=== PATIENT | male | born 1945 | race Caucasian/White ===

== ENCOUNTER 2018-07-08 11:37 | Emergency (ER) | payer OTHER, BC ==
--- NOTE | 2018-07-08 12:53 | ER ---
Nurse's Notes [facility] Name: Amilcar Moreno Age: 73 yrs Sex: Male : 1945 Arrival Date: 07/08/2018 Time: 11:42 Bed 16 Private MD: Segundo Reeves B Diagnosis: Sialoadenitis, unspecified Presentation: 07/08 11:49 Presenting complaint: Patient states: swollen gland on neck that he noticed just today, iw tender to touch, denies feeling bad, no fever, no cough no sore throat. Transition of care: patient was not received from another setting of care. Onset of symptoms was July 08, 2018. Risk Assessment: Do you want to hurt yourself or someone else? Patient reports no desire to harm self or others. Initial Sepsis Screen: Does the patient meet any 2 criteria? No. Patient's initial sepsis screen is negative. Does the patient have a suspected source of infection? No. Patient's initial sepsis screen is negative. Care prior to arrival: None. 11:49 Method Of Arrival: Ambulatory iw 11:49 Acuity: JOSE 4 iw Triage Assessment: 12:15 General: Appears in no apparent distress. uncomfortable, Behavior is calm, cooperative, hj appropriate for age. Pain: Complains of pain in neck. Historical: - Allergies: 11:52 No Known Allergies; iw - Home Meds: 11:52 atorvastatin 20 mg Oral tab 1 tab once daily [Active]; Bystolic 20 mg Oral tab 1 tab iw once daily [Active]; spironolactone 25 mg Oral tab 1 tab once daily [Active]; Tribenzor 40-10-12.5 mg Oral tab 1 tab once daily [Active]; Janumet 50-1,000 mg oral tab 1 tab 2 times per day [Active]; - PMHx: 11:52 COPD; Diabetes - NIDDM; Hypertension; High Cholesterol; iw 11:54 prostate cancer; iw - PSHx: 11:52 Cholecystectomy; Vasectomy; iw - Immunization history:: Adult Immunizations up to date. - Social history:: Smoking status: Patient/guardian denies using tobacco. - Ebola Screening: : Patient negative for fever greater than or equal to 101.5 degrees Fahrenheit, and additional compatible Ebola Virus Disease symptoms Patient denies exposure to infectious person Patient denies travel to an Ebola-affected area in the 21 days before illness onset No symptoms or risks identified at this time. - Family history:: not pertinent. Screenin:15 Abuse screen: Denies threats or abuse. Denies injuries from another. Nutritional hj screening: No deficits noted. Tuberculosis screening: No symptoms or risk factors identified. Fall Risk None identified. Vital Signs: 11:52 BP 157 / 80; Pulse 78; Resp 18 S; Temp 98.4; Pulse Ox 96% on R/A; Weight 112.04 kg; iw Height 5 ft. 10 in. (177.80 cm); Pain 0/10; 13:02 BP 158 / 78; Pulse 75; Resp 18; Pulse Ox 97% on R/A; hj 11:52 Body Mass Index 35.44 (112.04 kg, 177.80 cm) ED Course: 11:42 Patient arrived in ED. sb2 11:42 Segundo Reeves MD is Private Physician. sb2 11:50 Triage completed. iw 11:52 Arm band placed on. iw 12:11 Nayan Choi, RN is Primary Nurse. hj 12:14 Lowell Ortiz MD is Attending Physician. [facility] 12:16 Patient has correct armband on for positive identification. Bed in low position. Call hj light in reach. Side rails up X 1. 12:50 Segundo Reeves MD is Referral Physician. [facility] 13:00 No provider procedures requiring assistance completed. Patient did not have IV access hj during this emergency room visit. Administered Medications: 12:49 Drug: Augmentin 875 mg Route: PO; hj 12:52 Follow up: Response: No adverse reaction hj Outcome: 12:53 Discharge ordered by . bernabe 13:01 Discharged to home ambulatory. hj 13:01 Condition: stable 13:01 Discharge instructions given to patient, Instructed on discharge instructions, follow up and referral plans. medication usage, Demonstrated understanding of instructions, follow-up care, medications, Prescriptions given X 1. 13:03 Patient left the ED. hj Signatures: Lowell Ortiz MD MD cha Williams, Irene, RN RN Nayan Choi, RN RN Sharifa Bang sb2
--- NOTE | 2018-07-08 12:53 | EDPHYS ---
Physician Documentation [facility] Name: Amilcar Moreno Age: 73 yrs Sex: Male : 1945 Arrival Date: 07/08/2018 Time: 11:42 Bed 16 Private MD: Segundo Reeves B ED Physician Lowell Ortiz HPI: 07/08 12:47 This 73 yrs old Male presents to ER via Ambulatory with complaints of Swollen bernabe Glands. 12:47 The patient presents with pain, swelling. The problem is located in the right jaw. bernabe Onset: The symptoms/episode began/occurred this morning, today. Duration: The symptoms are continuous, and are unchanged since they started. Modifying factors: The symptoms are alleviated by nothing, the symptoms are aggravated by chewing, talking. The patient or guardian complains of pain, swelling, tenderness. The symptoms are located on the right jaw. Historical: - Allergies: 11:52 No Known Allergies; iw - Home Meds: 11:52 atorvastatin 20 mg Oral tab 1 tab once daily [Active]; Bystolic 20 mg Oral tab 1 tab iw once daily [Active]; spironolactone 25 mg Oral tab 1 tab once daily [Active]; Tribenzor 40-10-12.5 mg Oral tab 1 tab once daily [Active]; Janumet 50-1,000 mg oral tab 1 tab 2 times per day [Active]; - PMHx: 11:52 COPD; Diabetes - NIDDM; Hypertension; High Cholesterol; iw 11:54 prostate cancer; iw - PSHx: 11:52 Cholecystectomy; Vasectomy; iw - Immunization history:: Adult Immunizations up to date. - Social history:: Smoking status: Patient/guardian denies using tobacco. - Ebola Screening: : Patient negative for fever greater than or equal to 101.5 degrees Fahrenheit, and additional compatible Ebola Virus Disease symptoms Patient denies exposure to infectious person Patient denies travel to an Ebola-affected area in the 21 days before illness onset No symptoms or risks identified at this time. - Family history:: not pertinent. ROS: 12:47 Constitutional: Negative for fever, chills, and weight loss, Eyes: Negative for injury, bernabe pain, redness, and discharge, Neck: Negative for injury, pain, and swelling, Cardiovascular: Negative for chest pain, palpitations, and edema, Respiratory: Negative for shortness of breath, cough, wheezing, and pleuritic chest pain, Abdomen/GI: Negative for abdominal pain, nausea, vomiting, diarrhea, and constipation, Back: Negative for injury and pain, : Negative for injury, bleeding, discharge, and swelling, MS/Extremity: Negative for injury and deformity, Skin: Negative for injury, rash, and discoloration, Neuro: Negative for headache, weakness, numbness, tingling, and seizure, Psych: Negative for depression, anxiety, suicide ideation, homicidal ideation, and hallucinations, Allergy/Immunology: Negative for hives, rash, and allergies, Endocrine: Negative for neck swelling, polydipsia, polyuria, polyphagia, and marked weight changes, Hematologic/Lymphatic: Negative for swollen nodes, abnormal bleeding, and unusual bruising. 12:47 ENT: Positive for sore throat, right submandibular swelling, no trismus. Exam: 12:47 Constitutional: This is a well developed, well nourished patient who is awake, alert, bernabe and in no acute distress. Eyes: Pupils equal round and reactive to light, extra-ocular motions intact. Lids and lashes normal. Conjunctiva and sclera are non-icteric and not injected. Cornea within normal limits. Periorbital areas with no swelling, redness, or edema. Neck: Trachea midline, no thyromegaly or masses palpated, and no cervical lymphadenopathy. Supple, full range of motion without nuchal rigidity, or vertebral point tenderness. No Meningismus. Chest/axilla: Normal chest wall appearance and motion. Nontender with no deformity. No lesions are appreciated. Cardiovascular: Regular rate and rhythm with a normal S1 and S2. No gallops, murmurs, or rubs. Normal PMI, no JVD. No pulse deficits. Respiratory: Lungs have equal breath sounds bilaterally, clear to auscultation and percussion. No rales, rhonchi or wheezes noted. No increased work of breathing, no retractions or nasal flaring. Abdomen/GI: Soft, non-tender, with normal bowel sounds. No distension or tympany. No guarding or rebound. No evidence of tenderness throughout. Back: No spinal tenderness. No costovertebral tenderness. Full range of motion. Male : Normal genitalia with no discharge or lesions. Skin: Warm, dry with normal turgor. Normal color with no rashes, no lesions, and no evidence of cellulitis. 12:47 Head/face: Noted is swelling, tenderness, that is mild, of the right jaw and right mandible. Vital Signs: 11:52 BP 157 / 80; Pulse 78; Resp 18 S; Temp 98.4; Pulse Ox 96% on R/A; Weight 112.04 kg; iw Height 5 ft. 10 in. (177.80 cm); Pain 0/10; 13:02 BP 158 / 78; Pulse 75; Resp 18; Pulse Ox 97% on R/A; hj 11:52 Body Mass Index 35.44 (112.04 kg, 177.80 cm) MDM: 12:14 Patient medically screened. [facility] 12:50 Data reviewed: vital signs, nurses notes. [facility] Administered Medications: 12:49 Drug: Augmentin 875 mg Route: PO; 12:52 Follow up: Response: No adverse reaction Disposition: 07/08/18 12:53 Discharged to Home. Impression: Sialoadenitis, unspecified. - Condition is Stable. - Discharge Instructions: Salivary Gland Infection. - Prescriptions for Augmentin 875- 125 mg Oral Tablet - take 1 tablet by ORAL route every 12 hours for 10 days; 20 tablet. - Medication Reconciliation Form, Thank You Letter, Antibiotic Education, Prescription Opioid Use form. - Follow up: Segundo Reeves MD; When: 2 - 3 days; Reason: Recheck today's complaints, Continuance of care, Re-evaluation by your physician. - Problem is new. - Symptoms have improved. Signatures: Lowell Ortiz MD MD cha Williams, Irene RN RN Nayan Choi RN RN Corrections: (The following items were deleted from the chart) 13:03 12:53 07/08/2018 12:53 Discharged to Home. Impression: Sialoadenitis, unspecified. Condition is Stable. Forms are Medication Reconciliation Form, Thank You Letter, Antibiotic Education, Prescription Opioid Use. Follow up: Segundo Reeves; When: 2 - 3 days; Reason: Recheck today's complaints, Continuance of care, Re-evaluation by your physician. Problem is new. Symptoms have improved. [facility]
[2018-07-08] MEDS ORDERED: AMOX/K CLAV 875 MG TAB ONE (13:01)
[2018-07-08 13:12] VITALS: TEMP 98.4
[2018-07-08 13:14] VITALS: BP 158/78; O2SAT 97
== END 2018-07-08 13:03 | disposition home or self-care (01) ==
LOC: ER 11:37
DX: K11.20 Sialoadenitis, unspecified (principal); J44.9 Chronic obstructive pulmonary disease, unspecified; E11.9 Type 2 diabetes mellitus without complications; E78.00 Pure hypercholesterolemia, unspecified; I10 Essential (primary) hypertension; Z79.84 Long term (current) use of oral hypoglycemic drugs; Z79.899 Other long term (current) drug therapy; Z85.46 Personal history of malignant neoplasm of prostate
CPT/HCPCS: 99283

== ENCOUNTER 2020-01-13 07:39 | Day surgery (SDC) | payer OTHER, BC ==
[2020-01-10 09:35] LABS: Absolute Lymphocytes (CBC) 1.2 K/uL (0.7-4.9); Basophils % 0.6 % (0-1.3); Hematocrit 38.9 % (39.6-49.0); Lymphocytes % 19.6 % (15.3-44.8); MPV 8.5 fL (7.6-11.3); RBC Red Blood Cell Count 4.35 M/uL (4.33-5.43)
--- NOTE | 2020-01-10 09:40 | RAD REPORT ---
EXAM DESCRIPTION: RAD - Chest Pa And Lat (2 Views) - 01/10/2020 9:25 am CLINICAL HISTORY: Preop Chest pain. COMPARISON: Chest Pa And Lat (2 Views) dated 09/21/2016; CHEST PA AND LAT 2 VIEW dated 09/10/2015; [facility] SINGLE VIEW dated 12/11/2014; CHEST SINGLE VIEW dated 12/10/2014 TECHNIQUE: PA and lateral views of the chest were obtained. FINDINGS: The lungs are hyperexpanded compatible with COPD. The heart is upper limit of normal in si ze. No fracture or aggressive bony process. IMPRESSION: COPD without acute process identified.
[2020-01-10 09:42] LABS: Potassium 3.4 mmol/L (3.5-5.1)
[2020-01-13] MEDS ORDERED: NA CHLORIDE 0.9% 1,000 ML ONE (08:04)
[2020-01-13] MEDS ORDERED: CEFAZOLIN/SWI 1gm 1 GM/10 ML SYR ONE (08:05)
[2020-01-13] MEDS ORDERED: ALBUTEROL INHALER 60 PUFF/8 GM IH ONE (08:08)
[2020-01-13] MEDS ORDERED: ALBUTEROL 2.5 MG/3 ML NEB SOL ONE (08:14)
[2020-01-13] MEDS ORDERED: FENTANYL CITR 100 MCG/2 ML ONE (08:26)
[2020-01-13] MEDS ORDERED: LIDOCAINE 1% MPF 5 ML VIAL ONE (08:26)
[2020-01-13] MEDS ORDERED: propofoL 200 MG/20 ML VIAL IV ONE (08:26)
[2020-01-13] MEDS ORDERED: KETOROLAC 30 MG/ML INJ ONE (08:51)
[2020-01-13] MEDS ORDERED: dexAMETHasone 10 MG/ML VIAL ONE (08:51)
--- OUTSIDE RECORDS SUMMARY | 2020-01-13 09:04 | XMS REPORT | Continuity of Care Document ---
:1945 Author Organization [facility] t Address [address] [place] [address] Dr. Sales [address] [place] [id number] Care Team Providers Name Role Phone Unavailable Unavailable Unavailable Problems This patient has no known problems. Allergies, Adverse Reactions, Alerts This patient has no known allergies or adverse reactions. Medications This patient has no known medications. Procedures This patient has no known procedures. Results This patient has no known results.
[2020-01-13] MEDS ORDERED: ONDANSETRON 4 MG/2 ML VIAL ONE (09:09)
[2020-01-13] MEDS ORDERED: EPHEDRINE SULF 50 MG/ML VIAL ONE (09:09)
[2020-01-13] MEDS ORDERED: NS 0.9% VIAL 10 ML ONE (09:09)
[2020-01-13 09:27] VITALS: TEMP 97.3
[2020-01-13 09:33] VITALS: O2SAT 95
[2020-01-13] MEDS ORDERED: SUCCINYLCHOLINE 20 MG/ML (10 ML) IV ONE (09:35)
[2020-01-13] MEDS ORDERED: HYDROCODONE/APAP 7.5/325 MG TAB ONE (10:06)
--- NOTE | 2020-01-13 10:37 | OP ---
Date of Procedure: 01/13/2020 Surgeon: Alvin Gabriel MD Financial Advisor Trainee: ALISON Sky. Preoperative Diagnosis: Right breast mass. Postoperative Diagnosis: Right breast mass. Procedure Performed: Excision of right breast mass. Estimated Blood Loss: Minimal. Specimen: Right breast mass. Findings: Right breast mass consistent with hamartoma. Anesthesia: General. Complications: None. Disposition: Patient tolerated the procedure in stable condition, taken to Recovery in good general condition. Procedure In Detail: The patient was brought to the OR, placed in supine position. General anesthes ia begun. Patient was prepped and draped in the usual sterile fashion. Marcaine 0.5% infiltrated fo r postop pain control. A 15 blade was used to make a 4 cm incision above the nipple-areolar complex from approximately the 10 o'clock to 2 o'clock. Subcutaneous tissue divided. A mass with the capsul e surrounding it identified, the capsule and the mass both excised, sent to Pathology. Bleeding cont rolled with cautery. Then 3-0 chromic used to approximate the subcutaneous tissue and close the skin . Sterile dressing was applied. Patient was awakened and taken to Recovery in good general conditio n. The mass was approximately 4 x 6 cm in diameter. The patient tolerated the procedure in stable c ondition, taken to Recovery in good general condition. Discharge Note: Patient will go to Day Surgery and home when stable. Disposition: Home. Condition: Stable. Discharge Instructions: Resume home medications and diet. Activity as tolerated. No heavy lifting. Keep dressing clean and dry, sponge bathe only. Follow up in my office in a week. Call for appoin tment. Tylenol No. 3 one tablet p.o. q.4 p.r.n. pain. /MODL Voice ID: [id number] Report ID: [id number]
[2020-01-13 11:20] VITALS: BP 157/68
--- NOTE | 2020-01-14 12:12 | EKG ---
Test Date: 2020-01-10 Test Time: 09:41:03 Engineering Production Liaison: DELIA MEASUREMENT RESULTS: Intervals: Rate: 62 SC: 194 QRSD: 106 QT: 434 QTc: 440 [place]: P: 14 SC: 194 QRS: 52 T: 48 INTERPRETIVE STATEMENTS: Normal sinus rhythm Normal ECG Compared to ECG 12/11/2014 07:01:33 Sinus bradycardia no longer present First degree AV block no longer present Electronically Signed On 01-14-20 12:09:41 CDT by Jon Varma
== END 2020-01-13 10:30 | disposition home or self-care (01) ==
LOC: OR 07:39
PROVIDERS: ATTEND Surgery
PROC: 0HBT0ZZ Excision of Right Breast, Open Approach (ICD-10-PCS; principal; 2020-01-13 08:30)
DX: N63.10 Unspecified lump in the right breast, unspecified quadrant (principal); E11.9 Type 2 diabetes mellitus without complications; I10 Essential (primary) hypertension; Z11.59 Encounter for screening for other viral diseases
CPT/HCPCS: 93005; 85025; 80048; 36415; 82947 ×2; 88305; 71046; 19120; U0002; J2704; J3010; J1100; J0690; J7030; J2405; J0330

== ENCOUNTER 2020-03-20 22:35 | Emergency (ER) | payer OTHER, BC ==
--- OUTSIDE RECORDS SUMMARY | 2020-03-20 22:40 | XMS REPORT | Continuity of Care Document ---
:1945 Author Organization [facility] t Address [address] [place] [address] Dr. Sales [address] [place] [id number] Care Team Providers Name Role Phone Unavailable Unavailable Unavailable Problems This patient has no known problems. Allergies, Adverse Reactions, Alerts This patient has no known allergies or adverse reactions. Medications This patient has no known medications. Procedures This patient has no known procedures. Results This patient has no known results.
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
[2020-03-21 00:41] VITALS: TEMP 98.8
[2020-03-21 00:42] VITALS: BP 162/75; O2SAT 95
--- NOTE | 2020-03-21 08:31 | RAD REPORT ---
EXAM DESCRIPTION: RAD - Humerus Left - 03/21/2020 12:02 am CLINICAL HISTORY: Left arm pain FINDINGS: No fracture is seen
--- NOTE | 2020-03-21 08:35 | RAD REPORT ---
EXAM DESCRIPTION: Robert Single View03/21/2020 12:01 am CLINICAL HISTORY: Chest pain COMPARISON: January 2020 FINDINGS: The lungs appear clear of acute infiltrate. The heart is borderline enlarged IMPRESSION: No acute abnormalities displayed
--- NOTE | 2020-03-21 08:36 | RAD REPORT ---
EXAM DESCRIPTION: RAD - Lumbar Spine 3 Views - 03/21/2020 12:25 am CLINICAL HISTORY: Back pain FINDINGS: The alignment of the lumbar spine is satisfactory. No fracture or dislocation is seen. Mild spondylosis involves the lumbar spine. The bones are osteoporotic. Osteoarthritis involves facet joints of lower lumbar spine
== END 2020-03-21 00:35 | disposition home or self-care (01) ==
LOC: ER 22:35
DX: M62.830 Muscle spasm of back (principal); V59.49XA Driver of pick-up truck or van injured in collision with other motor vehicles in traffic accident, initial encounter; I10 Essential (primary) hypertension; E11.9 Type 2 diabetes mellitus without complications; E78.00 Pure hypercholesterolemia, unspecified; J44.9 Chronic obstructive pulmonary disease, unspecified; Z85.46 Personal history of malignant neoplasm of prostate
CPT/HCPCS: 71045; 72100; 99284

== ENCOUNTER 2024-04-08 09:27 | Emergency (ER) | payer OTHER ==
--- NOTE | 2024-04-08 10:17 | RAD REPORT ---
Extremity Venous Uni Ltd CLINICAL INDICATION: Male, 79 years old.PAIN RIGHT TECHNIQUE: Complete duplex sonography of the lower extremity veins was performed of the affected limb . The examination included compression for vein patency, color Doppler imaging and flow augmentation in response to distal compression of the distal external iliac, common femoral, femoral, popliteal, peroneal, tibial and great saphenous veins. [id number]. COMPARISON: No prior exams FINDINGS: Duplex sonography imaging demonstrates all deep examined to be fully compressible with spontaneous, p hasic and augmented flow in the affected limb. IMPRESSION: No evidence of deep venous thrombosis in the right lower extremity.
--- NOTE | 2024-04-08 10:41 | RAD REPORT ---
EXAM:Knee Right 3 View HISTORY: PAIN COMPARISON: 03/05/2014 IMPRESSION: No acute fracture of the right knee. Moderate medial compartment narrowing. Mild lateral compartment spurring and mild patellofemoral compartment spurring. No significant knee effusion. Patellar enthesophyte.
--- NOTE | 2024-04-08 10:48 | ER ---
Nurse's Notes [facility] Name: Amilcar Moreno Age: 79 yrs Sex: Male : 1945 Arrival Date: 04/08/2024 Time: 09:27 Bed 20 Private MD: Diagnosis: Pain in right knee Presentation: 04/08 09:33 Chief complaint: EMS states: right knee pain x2 weeks, worse over the couple of days. kc6 pt states he heard and felt a pop in the back of his knee while getting ready this AM. Coronavirus screen: At this time, the client does not indicate any symptoms associated with coronavirus-19. Ebola Screen: No symptoms or risks identified at this time. Initial Sepsis Screen: Does the patient meet any 2 criteria? No. Patient's initial sepsis screen is negative. Does the patient have a suspected source of infection? No. Patient's initial sepsis screen is negative. Risk Assessment: Do you want to hurt yourself or someone else? Patient reports no desire to harm self or others. Onset of symptoms was April 08, 2024. 09:33 Method Of Arrival: EMS: [facility] 6 09:33 Acuity: JOSE 4 kc6 Triage Assessment: 09:35 General: Appears in no apparent distress. comfortable, well groomed, well developed, kc6 Behavior is calm, cooperative, appropriate for age. Pain: Complains of pain in posterior aspect of right knee and right knee Pain currently is 4 out of 10 on a pain scale. at worst was 9 out of 10 on a pain scale. EENT: No signs and/or symptoms were reported regarding the EENT system. Neuro: Level of Consciousness is awake, alert, obeys commands, Oriented to person, place, time, situation, Appropriate for age. Cardiovascular: Capillary refill < 3 seconds. Respiratory: Airway is patent Trachea midline Respiratory effort is even, unlabored, Respiratory pattern is regular, symmetrical. GI: No signs and/or symptoms were reported involving the gastrointestinal system. : No signs and/or symptoms were reported regarding the genitourinary system. Derm: No signs and/or symptoms reported regarding the dermatologic system. Skin is intact, is healthy with good turgor, Skin is pink, warm \T\ dry. Musculoskeletal: Circulation, motion, and sensation intact. Capillary refill < 3 seconds, Range of motion: intact in all extremities. Historical: - Allergies: 09:35 No Known Allergies; kc6 - PMHx: 09:35 CHF; Diabetes - NIDDM; High Cholesterol; Hypertension; [place]; Prostate Cancer; COPD; BPH kc6 (COPD); - PSHx: 09:35 Cholecystectomy; Vasectomy; kc6 - Immunization history:: Adult Immunizations up to date. - Infectious Disease History:: Denies. - Social history:: Smoking status: Patient denies any tobacco usage or history of. Screenin:37 [facility] ED Fall Risk Assessment (Adult) History of falling in the last 3 months, kc6 including since admission No falls in past 3 months (0 pts) Confusion or Disorientation No (0 pts) Intoxicated or Sedated No (0 pts) Impaired Gait No (0 pts) Mobility Assist Device Used No (0 pt) Altered Elimination No (0 pt) Score/Fall Risk Level 0 - 2 = Low Risk Oriented to surroundings. Abuse screen: Denies threats or abuse. Denies injuries from another. Nutritional screening: No deficits noted. Tuberculosis screening: No symptoms or risk factors identified. Assessment: 09:36 Reassessment: please see triage. kc6 11:07 Reassessment: Patient appears in no apparent distress at this time. No changes from [facility] previously documented assessment. Patient and/or family updated on plan of care and expected duration. Pain level reassessed. Patient is alert, oriented x 3, equal unlabored respirations, skin warm/dry/pink. Vital Signs: 09:33 BP 138 / 73; Pulse 73; Resp 16 S; Temp 97.8(O); Pulse Ox 98% on R/A; Weight 96.62 kg kc6 (R); Height 5 ft. 10 in. (R); Pain 4/10; 11:07 BP 134 / 79; Pulse 70; Resp 15 S; Pulse Ox 100% on R/A; kc6 09:33 Body Mass Index 30.56 (96.62 kg, 177.8 cm) kc6 09:33 Pain Scale: Adult [facility] ED Course: 09:29 Patient arrived in ED. bernabe 09:29 Lowell Ortiz MD is Attending Physician. bernabe 09:30 Jessica Eden [facility]-C [facility]. sb4 09:33 Keily Gilliam RN is Primary Nurse. kc6 09:35 Triage completed. kc6 09:35 Arm band placed on. kc6 09:36 Patient has correct armband on for positive identification. Bed in low position. Call kc6 light in reach. Side rails up X2. Pulse ox on. NIBP on. Door closed. Noise minimized. Lights dimmed. Warm blanket given. Pillow given. 09:36 Patient maintains SpO2 saturation greater than 95% on room air. kc6 10:07 Extremity Venous Uni Ltd US: poss rosales's cyst In Process Unspecified. EDMS 10:36 Knee Right 3 View XRAY In Process Unspecified. EDMS 10:46 Oscar Camargo MD is Referral Physician. sb4 11:08 No provider procedures requiring assistance completed. Patient did not have IV access kc6 during this emergency room visit. Administered Medications: 11:07 Drug: Hydrocodone-Acetaminophen PO (7.5 mg-325 mg) 1 tabs PO once Route: PO; kc6 Medication: 11:08 VIS not applicable for this client. kc6 Outcome: 10:47 Discharge ordered by . sb4 11:08 Discharged to home via wheelchair, with family, kc6 11:08 Condition: good 11:08 Discharge instructions given to patient, Instructed on discharge instructions, follow up and referral plans. medication usage, Demonstrated understanding of instructions, follow-up care, medications, Prescriptions given X 1, 11:08 Patient left the ED. kc6 Signatures: Dispatcher [employer] Lowell Brenner MD MD cha Campbell, Kaitlyn, RN RN Jessica Light, PAMarc PAMarc sb4
--- NOTE | 2024-04-08 10:48 | EDPHYS ---
Physician Documentation [facility] Name: Amilcar Moreno Age: 79 yrs Sex: Male : 1945 Arrival Date: 04/08/2024 Time: 09:27 Bed 20 Private MD: FRANCISCO Physician Lowell Ortiz HPI: 04/08 09:32 This 79 yrs old Male presents to ER via Unassigned with complaints of Knee Pain. sb4 09:32 patient reports diffuse right knee discomfort for about 2 weeks now. states when he was sb4 putting on his jeans this morning, he felt a "pop" in the back of his right knee. he is able to ambulate without assistance and bend the knee. denies any prior history of knee injuries/pain. denies any numbness or tingling. Historical: - Allergies: 09:35 No Known Allergies; kc6 - PMHx: 09:35 CHF; Diabetes - NIDDM; High Cholesterol; Hypertension; [place]; Prostate Cancer; COPD; BPH kc6 (COPD); - PSHx: 09:35 Cholecystectomy; Vasectomy; kc6 - Immunization history:: Adult Immunizations up to date. - Infectious Disease History:: Denies. - Social history:: Smoking status: Patient denies any tobacco usage or history of. ROS: 09:32 Constitutional: Negative for fever, chills, and weight loss, sb4 09:32 MS/extremity: Positive for injury or acute deformity, pain, of the right knee, 09:32 All other systems are negative, Exam: 09:32 Constitutional: This is a well developed, well nourished patient who is awake, alert, sb4 and in no acute distress. Head/Face: Normocephalic, atraumatic. Eyes: Extra-ocular motions intact. Periorbital areas with no swelling, redness, or edema. ENT: Mucous membranes moist. Skin: Warm, dry with normal turgor. Normal color with no rashes, no lesions, and no evidence of cellulitis. 09:32 Musculoskeletal/extremity: ROM: full active range of motion, full passive range of motion, Circulation is intact in all extremities. Pulses: are normal with no appreciated deficits, Perfusion: the extremity is normally perfused throughout, Sensation intact. Vital Signs: 09:33 BP 138 / 73; Pulse 73; Resp 16 S; Temp 97.8(O); Pulse Ox 98% on R/A; Weight 96.62 kg kc6 (R); Height 5 ft. 10 in. (R); Pain 4/10; 11:07 BP 134 / 79; Pulse 70; Resp 15 S; Pulse Ox 100% on R/A; kc6 09:33 Body Mass Index 30.56 (96.62 kg, 177.8 cm) [facility] 09:33 Pain Scale: Adult kc6 MDM: 09:29 Patient medically screened. bernabe 09:29 Patient medically screened. bernabe 10:33 Differential diagnosis: contusion, fracture, sprain, strain. Data reviewed: vital sb4 signs, nurses notes, EMS record, radiologic studies, and as a result, I will discharge patient. Independent interpretation of the following test(s) in the Emergency Department X-Ray: My interpretation is my interpretation of the right knee xray images are no acute fracture or dislocation. Care significantly affected by the following chronic conditions: Diabetes, Hypertension, Congestive Heart Failure, Chronic Obstructive Pulmonary Disease, Obesity. Counseling: I had a detailed discussion with the patient and/or guardian regarding the historical points, exam findings, and any diagnostic results supporting the discharge/admit diagnosis, the presence of at least one elevated blood pressure reading (>120/80) during this emergency department visit, radiology results, the need for outpatient follow up, a orthopedic surgeon, to return to the emergency department if symptoms worsen or persist or if there are any questions or concerns that arise at home. 04/08 09:30 Order name: Knee Right 3 View XRAY; Complete Time: 10:42 sb4 04/08 09:30 Order name: Extremity Venous Uni Ltd US: poss rosales's cyst; Complete Time: 10:19 sb4 Administered Medications: 11:07 Drug: Hydrocodone-Acetaminophen PO (7.5 mg-325 mg) 1 tabs PO once Route: PO; kc6 Disposition Summary: 04/08/24 10:47 Discharge Ordered Notes: Location: Home sb4 Problem: new sb4 Symptoms: have improved sb4 Condition: Stable sb4 Diagnosis - Pain in right knee sb4 Followup: sb4 - With: Oscar Camargo MD - When: 1 week - Reason: Further diagnostic work-up, Recheck today's complaints, Re-evaluation by your physician Discharge Instructions: - Discharge Summary Sheet sb4 - Acute Knee Pain, Adult sb4 - Arthritis, [id number] sb4 Forms: - Patient Portal Instructions sb4 - Leadership Thank You Letter sb4 Prescriptions: - meloxicam 7.5 mg Oral tablet - take 1 tablet ORAL route daily; 14 tablet; Refills: 0, Product Selection sb4 Permitted Signatures: Dispatcher [employer] Lowell Brenner MD MD cha Campbell, Kaitlyn, RN RN [id number] Jessica Eden, LAURI PAMarc sb4
[2024-04-08] MEDS ORDERED: HYDROCODONE/APAP 7.5/325 MG TAB ONE (11:00)
[2024-04-08 11:18] VITALS: TEMP 97.8
[2024-04-08 11:20] VITALS: BP 134/79; O2SAT 100
== END 2024-04-08 11:08 | disposition home or self-care (01) ==
LOC: ER 09:27
DX: M25.561 Pain in right knee (principal)
CPT/HCPCS: 93971; 99284